=== PATIENT | female | born 1975 | race Two or more races ===

== ENCOUNTER → 2021-09-08 14:48 | Outpatient (BNVA) | payer OTHER, MEDICAID, SELFPAY | PROVIDERS: Visit Provider Psychiatry & Neurology Neurology | DX: G43.109 Migraine with aura, not intractable, without status migrainosus (principal); F41.9 Anxiety disorder, unspecified | CPT/HCPCS: 99212 ==

== ENCOUNTER → 2022-02-27 07:50 | Outpatient (BNVA) | payer OTHER, SELFPAY | PROVIDERS: Visit Provider Psychiatry & Neurology Neurology | DX: G43.119 Migraine with aura, intractable, without status migrainosus (principal) | CPT/HCPCS: 64615; 99211; J0585 ==

== ENCOUNTER → 2022-05-01 08:07 | Outpatient (BNVA) | payer OTHER, SELFPAY | PROVIDERS: Visit Provider Nurse Practitioner Family | DX: G43.109 Migraine with aura, not intractable, without status migrainosus (principal); G47.33 Obstructive sleep apnea (adult) (pediatric); Z99.89 Dependence on other enabling machines and devices | CPT/HCPCS: 99212 ==

== ENCOUNTER → 2022-05-28 11:28 | Outpatient (BNVA) | payer OTHER, SELFPAY | PROVIDERS: Visit Provider Psychiatry & Neurology Neurology | DX: G43.119 Migraine with aura, intractable, without status migrainosus (principal); G43.109 Migraine with aura, not intractable, without status migrainosus | CPT/HCPCS: 64615; 99211; J0585 ==

== ENCOUNTER → 2022-09-02 11:42 | Outpatient (BNVA) | payer OTHER, SELFPAY | PROVIDERS: Visit Provider Psychiatry & Neurology Neurology | DX: G43.119 Migraine with aura, intractable, without status migrainosus (principal); G43.709 Chronic migraine without aura, not intractable, without status migrainosus | CPT/HCPCS: 64615; 99211; J0585 ==

== ENCOUNTER → 2022-09-28 10:00 | Outpatient (BNVA) | payer OTHER, SELFPAY | PROVIDERS: Visit Provider Nurse Practitioner Family | DX: G43.709 Chronic migraine without aura, not intractable, without status migrainosus (principal); G43.119 Migraine with aura, intractable, without status migrainosus; G47.33 Obstructive sleep apnea (adult) (pediatric) | CPT/HCPCS: 99212 ==

== ENCOUNTER 2022-12-09 10:12 | Outpatient (AMB) | payer OTHER, SELFPAY ==
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
[2022-12-09 10:36] VITALS: BP 126/78; PULSE 66; O2SAT 98
== END 2022-12-09 10:55 | disposition home or self-care (01) ==
PROVIDERS: Visit Provider Psychiatry & Neurology Neurology
DX: G43.119 Migraine with aura, intractable, without status migrainosus (principal); G43.709 Chronic migraine without aura, not intractable, without status migrainosus
CPT/HCPCS: 64615

== ENCOUNTER → 2022-12-09 10:12 | Outpatient (BNVA) | payer OTHER, SELFPAY | PROVIDERS: Visit Provider Psychiatry & Neurology Neurology | DX: G43.709 Chronic migraine without aura, not intractable, without status migrainosus (principal) | CPT/HCPCS: 64615; 99211; J0585 ==

== ENCOUNTER 2023-01-28 10:52 | Outpatient (AMB) | payer OTHER, SELFPAY ==
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
[2023-01-28 10:55] VITALS: BP 116/78; BMI 47.1
== END 2023-01-28 11:35 | disposition home or self-care (01) ==
PROVIDERS: Visit Provider Nurse Practitioner Family
DX: G43.709 Chronic migraine without aura, not intractable, without status migrainosus (principal); G43.119 Migraine with aura, intractable, without status migrainosus; R11.2 Nausea with vomiting, unspecified; G47.33 Obstructive sleep apnea (adult) (pediatric)
CPT/HCPCS: 99214

== ENCOUNTER → 2023-01-28 10:52 | Outpatient (BNVA) | payer OTHER, SELFPAY | PROVIDERS: Visit Provider Nurse Practitioner Family | DX: G43.709 Chronic migraine without aura, not intractable, without status migrainosus (principal); G43.119 Migraine with aura, intractable, without status migrainosus; R11.2 Nausea with vomiting, unspecified; G47.33 Obstructive sleep apnea (adult) (pediatric); Z79.899 Other long term (current) drug therapy | CPT/HCPCS: 99212 ==

== ENCOUNTER 2023-03-22 10:36 | Outpatient (AMB) | payer OTHER, SELFPAY ==
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
[2023-03-22 11:07] VITALS: BP 108/78; PULSE 63; RESP 17; O2SAT 97; BMI 46.8
== END 2023-03-22 11:23 | disposition home or self-care (01) ==
PROVIDERS: Visit Provider Psychiatry & Neurology Neurology
DX: G43.709 Chronic migraine without aura, not intractable, without status migrainosus (principal)
CPT/HCPCS: 64615

== ENCOUNTER → 2023-03-22 10:36 | Outpatient (BNVA) | payer OTHER, SELFPAY | PROVIDERS: Visit Provider Psychiatry & Neurology Neurology | DX: G43.709 Chronic migraine without aura, not intractable, without status migrainosus (principal) | CPT/HCPCS: 64615; 99211; J0585 ==

== ENCOUNTER 2023-05-19 11:28 | Outpatient (AMB) | payer OTHER, SELFPAY ==
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
[2023-05-19 11:56] VITALS: BP 132/72; PULSE 71; RESP 17; O2SAT 95; BMI 45.8
== END 2023-05-19 12:24 | disposition home or self-care (01) ==
PROVIDERS: Visit Provider Nurse Practitioner Family
DX: G43.709 Chronic migraine without aura, not intractable, without status migrainosus (principal); G47.33 Obstructive sleep apnea (adult) (pediatric)
CPT/HCPCS: 99214

== ENCOUNTER → 2023-05-19 11:28 | Outpatient (BNVA) | payer OTHER, SELFPAY | PROVIDERS: Visit Provider Nurse Practitioner Family | DX: G43.709 Chronic migraine without aura, not intractable, without status migrainosus (principal); G47.33 Obstructive sleep apnea (adult) (pediatric) | CPT/HCPCS: 99212 ==

== ENCOUNTER 2023-06-25 14:25 | Outpatient (AMB) | payer OTHER, SELFPAY ==
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
[2023-06-25 14:30] VITALS: BP 112/68; PULSE 70; RESP 17; O2SAT 97; BMI 46.4
== END 2023-06-25 14:55 | disposition home or self-care (01) ==
LOC: HO.HSMS 14:26
PROVIDERS: Visit Provider Psychiatry & Neurology Neurology
DX: G43.119 Migraine with aura, intractable, without status migrainosus (principal)
CPT/HCPCS: 64615

== ENCOUNTER → 2023-06-25 14:25 | Outpatient (BNVA) | payer OTHER, SELFPAY | PROVIDERS: Visit Provider Psychiatry & Neurology Neurology | DX: G43.119 Migraine with aura, intractable, without status migrainosus (principal); G43.709 Chronic migraine without aura, not intractable, without status migrainosus | CPT/HCPCS: 64615; 99211; J0585 ==

== ENCOUNTER 2023-10-07 10:46 | Outpatient (AMB) | payer OTHER, SELFPAY ==
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
[2023-10-07 11:11] VITALS: BP 132/70; PULSE 67; O2SAT 98; BMI 45.7
== END 2023-10-07 11:32 | disposition home or self-care (01) ==
PROVIDERS: Visit Provider Psychiatry & Neurology Neurology
DX: G43.E09 Chronic migraine with aura, not intractable, without status migrainosus (principal)
CPT/HCPCS: 64615

== ENCOUNTER → 2023-10-07 10:46 | Outpatient (BNVA) | payer OTHER, SELFPAY | PROVIDERS: Visit Provider Psychiatry & Neurology Neurology | DX: G43.E09 Chronic migraine with aura, not intractable, without status migrainosus (principal) | CPT/HCPCS: 64615; 99211; J0585 ==

== ENCOUNTER 2024-01-17 15:10 | Outpatient (AMB) | payer OTHER, SELFPAY ==
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
[2024-01-17 15:16] VITALS: BP 128/70; PULSE 90; RESP 16; O2SAT 98; BMI 47.4
== END 2024-01-17 15:30 | disposition home or self-care (01) ==
PROVIDERS: Visit Provider Psychiatry & Neurology Neurology
DX: G43.719 Chronic migraine without aura, intractable, without status migrainosus (principal)
CPT/HCPCS: 64615

== ENCOUNTER → 2024-01-17 15:10 | Outpatient (BNVA) | payer OTHER, SELFPAY | PROVIDERS: Visit Provider Psychiatry & Neurology Neurology | DX: G43.E19 Chronic migraine with aura, intractable, without status migrainosus (principal) | CPT/HCPCS: 64615; 99211; J0585 ==

== ENCOUNTER 2024-03-31 12:57 | Outpatient (AMB) | payer OTHER, SELFPAY ==
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
[2024-03-31 12:59] VITALS: BMI 47.3
== END 2024-03-31 14:02 | disposition home or self-care (01) ==
PROVIDERS: Visit Provider Physician Assistant Medical
DX: G43.719 Chronic migraine without aura, intractable, without status migrainosus (principal); G47.33 Obstructive sleep apnea (adult) (pediatric); R20.0 Anesthesia of skin; R20.2 Paresthesia of skin
CPT/HCPCS: 99214

== ENCOUNTER → 2024-03-31 12:57 | Outpatient (BNVA) | payer OTHER, SELFPAY | PROVIDERS: Visit Provider Physician Assistant Medical | DX: G43.719 Chronic migraine without aura, intractable, without status migrainosus (principal); R20.0 Anesthesia of skin; R20.2 Paresthesia of skin; G47.33 Obstructive sleep apnea (adult) (pediatric); M47.816 Spondylosis without myelopathy or radiculopathy, lumbar region; M54.10 Radiculopathy, site unspecified; Z99.89 Dependence on other enabling machines and devices | CPT/HCPCS: 99212 ==

== ENCOUNTER 2024-05-01 08:14 | Outpatient (AMB) | payer OTHER, SELFPAY ==
[2024-05-01 08:17] VITALS: BP 126/88; PULSE 83; O2SAT 95; BMI 47.5
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
== END 2024-05-01 08:47 | disposition home or self-care (01) ==
PROVIDERS: Visit Provider Psychiatry & Neurology Neurology
DX: G43.E19 Chronic migraine with aura, intractable, without status migrainosus (principal)
CPT/HCPCS: 64615

== ENCOUNTER → 2024-05-01 08:14 | Outpatient (BNVA) | payer OTHER, SELFPAY | PROVIDERS: Visit Provider Psychiatry & Neurology Neurology | DX: G43.119 Migraine with aura, intractable, without status migrainosus (principal); G43.719 Chronic migraine without aura, intractable, without status migrainosus | CPT/HCPCS: 64615; 99211; J0585 ==

== ENCOUNTER 2024-05-02 06:14 | Outpatient (REF) | payer OTHER, SELFPAY ==
--- NOTE | 2024-05-02 06:16 | EMG_ITS ---
Bilateral tibial and peroneal motor studies were performed. Bilateral superficial peroneal and sural sensory studies were performed. Tibial H reflexes were obtained and paraspinal muscles were tested with a needle. IMPRESSION: 1. Left lower lumbar radiculopathy. 2. Mild underlying sensory axonal peripheral neuropathy. MD DIOMEDES Hernandez/BERNADETTE / [phone]
== END 2024-05-02 06:15 | disposition home or self-care (01) ==
LOC: HO.NEURO 06:14
PROVIDERS: Visit Provider Physician Assistant Medical
DX: R20.0 Anesthesia of skin (principal); R20.2 Paresthesia of skin
CPT/HCPCS: 95886; 95911

== ENCOUNTER 2024-05-03 08:41 | Outpatient (AMB) | payer OTHER, SELFPAY ==
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
[2024-05-03 08:45] VITALS: BMI 47.5
== END 2024-05-05 15:57 | disposition home or self-care (01) ==
PROVIDERS: Visit Provider Nurse Practitioner Family
DX: G43.719 Chronic migraine without aura, intractable, without status migrainosus (principal); M54.9 Dorsalgia, unspecified; R20.2 Paresthesia of skin; M54.10 Radiculopathy, site unspecified
CPT/HCPCS: 99214

== ENCOUNTER → 2024-05-03 08:41 | Outpatient (BNVA) | payer OTHER, SELFPAY | PROVIDERS: Visit Provider Nurse Practitioner Family ==

== ENCOUNTER 2024-05-11 08:26 | Outpatient (REF) | payer OTHER, SELFPAY ==
--- NOTE | ~2024-05-11 | XR_ITS ---
EXAMINATION: XR LUMBOSACRAL SPINE CLINICAL INFORMATION: M47.816 - Spondylosis without myelopathy or radiculopathy, lumbar region COMPARISON: Correlated to MRI lumbar spine dated January 04, 2017. TECHNIQUE: 6 views of the lumbar spine, inclusive of flexion and extension views, were obtained. FINDINGS: Endplate sclerosis and decreased intervertebral disc height at L4-5 and L5-S1 level. Rudimentary ribs at T12. Marginal osteophyte formation and endplate sclerosis at multiple levels of the lower thoracic and upper lumbar spine. No acute cortical disruption or malalignment. Facet joint hypertrophy at L4-5 and L5-S1. Vascular clips in the right upper quadrant abdomen and likely prior laparoscopic cholecystectomy. XR/XR lumbar spine 6V w bending IMPRESSION: Multilevel thoracolumbar spondylosis without acute fracture or listhesis. Electronically signed by: Bear Haynes MD 05/12/2024 10:08 AM [facility]
[2024-05-11 09:30] LABS: MANUAL DIFF FLAG NO
[2024-05-11 10:22] LABS: Basophils Percent Auto 0.6 % (0-2); Eosinophils Absolute Auto 0.1 X10*3/uL (0.0-0.4); Hematocrit 43.9 % (37.0-47.0); Imm Gran Abs Auto 0.02 X10*3/uL (0.00-0.03); Imm Gran Pct Auto 0.3 % (0.0-0.4); Lymphocytes Absolute Auto 1.7 X10*3/uL (1.2-4.9); Lymphocytes Percent Auto 24.2 % (20-40); Mean Corpuscular HGB Conc 31.9 g/dl (31.0-35.0); Mean Corpuscular Hemoglobin 29.4 pg (27.0-33.0); Mean Corpuscular Volume 92.2 fL (80.0-98.0); Mean Platelet Volume 10.9 fL (9.4-12.3); Monocytes Absolute Auto 0.5 X10*3/uL (0.1-1.2); Monocytes Percent Auto 7.5 % (2-11); Neutrophils Absolute Auto 4.6 x10*3/uL (2.0-8.3); Neutrophils Percent Auto 65.4 % (45-73); Platelet Count 233 X10*3/uL (160-400); Red Blood Count 4.76 X10*6/uL (4.20-5.50)
[2024-05-11 10:59] LABS: Estimated Average Glucose 97 mg/dL; Hemoglobin A1C 116.8234 umol/L; Total Hemoglobin (HGBA1C) 3709.8716 umol/L
[2024-05-11 11:10] LABS: Alanine Aminotransferase 17 U/L (0-31); Albumin Level 4.2 g/dL (3.5-5.0); Alkaline Phosphatase 82 U/L (39-117); Anion Gap 9 (12-20); Aspartate Amino Transferase 22 U/L (5-31); Bilirubin Total 0.4 mg/dL (0.0-1.0); Blood Urea Nitrogen 12 mg/dL (9-16); Calcium 9.4 mg/dL (8.4-10.2); Carbon Dioxide 25 mmol/L (22-29); Chloride 112 mmol/L (96-108); Estimated Glomerular Filt Rate 56; Glucose Random 99 mg/dL (60-115); Magnesium 2.1 mg/dL (1.6-2.6); Potassium 4.2 mmol/L (3.3-5.1); Sodium 142 mmol/L (135-145); Total Protein 7.8 g/dL (6.5-8.0)
[2024-05-11 11:28] LABS: Folate 11.1 ng/mL (> or = 4.0); TSH reflex Free T4 0.92 uIU/mL (0.32-4.0); Vitamin B12 415 pg/mL (200-900)
[2024-05-15 17:18] LABS: Vitamin D 25-OH, D2 <4 ng/mL; Vitamin D 25-OH, D3 10 ng/mL; Vitamin D 25-OH, Total 10 ng/mL (30-100)
[2024-05-20 16:28] LABS: Vitamin B6 <2.0 ng/mL (2.1-21.7)
== END 2024-05-11 08:27 | disposition home or self-care (01) ==
LOC: HO.LAB 08:26
PROVIDERS: Visit Provider Nurse Practitioner Family
DX: E03.9 Hypothyroidism, unspecified (principal); E66.9 Obesity, unspecified; F32.A Depression, unspecified; M54.9 Dorsalgia, unspecified; R20.2 Paresthesia of skin; R20.0 Anesthesia of skin; M54.10 Radiculopathy, site unspecified; M47.816 Spondylosis without myelopathy or radiculopathy, lumbar region
CPT/HCPCS: 36415; 72114; 80053; 82306; 82607; 82746; 83036; 83735; 84207; 84443; 85025

== ENCOUNTER → 2024-05-11 08:34 | Outpatient (BNV) | payer OTHER, SELFPAY | PROVIDERS: Visit Provider Radiology Diagnostic Radiology | DX: M47.815 Spondylosis without myelopathy or radiculopathy, thoracolumbar region (principal) | CPT/HCPCS: 72114 ==

== ENCOUNTER 2024-05-13 08:37 | Outpatient (REF) | payer OTHER, SELFPAY ==
--- NOTE | ~2024-05-13 | MR_ITS ---
EXAMINATION: MR LUMBAR SPINE WITHOUT IV CONTRAST History: R20.0 - Anesthesia of skin Technique: Sagittal T1, T2 and STIR, and axial T1 and T2 weighted images of the lumbar spine were obtained per departmental protocol. Comparison: Comparison is made with the prior examination dated 01/04/2017. Findings: The vertebral bodies maintain normal height, alignment, and marrow signal intensity. There is minimal degenerative disc disease with disc desiccation. At T12-L1,there is no evidence of disc herniation, central spinal stenosis, or neural foraminal narrowing. At L1-2, there is no evidence of disc herniation, central spinal stenosis, or neural foraminal narrowing. At L2-3, there is no evidence of disc herniation, central spinal stenosis, or neural foraminal narrowing. At L3-4, there is a mild disc bulge. There is facet and ligamentum flavum hypertrophy causing narrowing of the inferior recesses of the bilateral neural foramen. There is no significant central spinal stenosis. At L4-5, there is a mild disc bulge. There is facet osteoarthritis causing bilateral neural foraminal narrowing. There is no significant central spinal stenosis. At L5-S1, there is a mild disc bulge which is slightly asymmetric to the right. There is no central spinal or neural foraminal stenosis. The conus terminates at the L1 level and demonstrates normal signal intensity. The visualized paraspinal soft tissues are unremarkable. MR/MR lumbar spine wo con Impression: Mild degenerative changes of the lumbar spine as described. Electronically signed by: Abhinav Granger MD 05/15/2024 09:22 AM [facility]
== END 2024-05-13 08:38 | disposition home or self-care (01) ==
LOC: HO.MRI 08:37
PROVIDERS: Visit Provider Physician Assistant Medical
DX: R20.0 Anesthesia of skin (principal); R20.2 Paresthesia of skin; M47.816 Spondylosis without myelopathy or radiculopathy, lumbar region
CPT/HCPCS: 72148

== ENCOUNTER → 2024-05-13 08:41 | Outpatient (BNV) | payer OTHER, SELFPAY | PROVIDERS: Visit Provider Radiology Diagnostic Radiology | DX: R20.0 Anesthesia of skin (principal) | CPT/HCPCS: 72148 ==

== ENCOUNTER 2024-08-15 08:51 | Outpatient (AMB) | payer OTHER, SELFPAY ==
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
[2024-08-15 09:00] VITALS: PULSE 108; O2SAT 97; BMI 47.3
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
--- OUTSIDE RECORDS SUMMARY | 2024-08-15 09:17 | XMS_ITS | Encounter Summary ---
Author Organization [facility] Address [address] [place] [address] Care Team Providers Care Party Director Name Role Phone Unavailable Primary Care Provider Unavailabl e Encounter Details Date Type Department Care Team (Late st Contact Info) Description 08/08/2021 Dental Interim Note [facility] [address] [place] [phone] Sue Sales [address] [place] [address] Social History Tobacco Use Types Packs/Day Years Used Date Smoking Tobacco: Every Day Cigarettes 5 4 Smokeless Tobacco: Never Alcohol Use Standard Drinks/Week Comments No 0 (1 standard drink = 0.6 oz pur e alcohol) Social Connections Answer Date Recorded Social Connections and Isolation 0 12/19/2018 Financial Resource Strain Answer Date R ecorded Financial Resource Strain 0 2018 Stress Answer Date Recorded Stress 0 12/19/2018 Physical Activity Answer Date Recorded Physical Activity 0 12/19/2018 Food Insecurity Answer Date Recorded Food 0 12/19/2018 Transportation Needs Answer Date Record ed Transportation 0 12/19/2018 Housing Stability Answer Date Recorded Housing 0 12/19/2018 Safety and Environment Answer Date Hilton rded Safety 0 04/07/2017 Utilities Answer Date Recorded Utilities 0 12/19/2018 Employment Answer Date Recorded Employment 0 12/19/2018 Comments No Sex and Gender Information Value Date Recorded Sex Assigned at Female 04/07/2017 6:16 AM PST Legal Sex Female 6:49 AM PDT Gender Identity Female 04/07/2017 6:16 AM PST Sexual Orientation Straight 04/07/2017 6: 16 AM PST documented as of this encounter Plan of Treatment Not on file documented as of this encounter Visit Diagnoses Not on filedocumented in this encounter Additional Health Concerns Assessment Noted Time PHQ-9 Depression Total Score: 7 04/07/20 17 9:16 AM PST documented as of this encounter
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
--- OUTSIDE RECORDS SUMMARY | 2024-08-15 09:17 | XMS_ITS | Clinical Summary ---
Author Organization [facility] Address [address] [place] [address] Care Team Providers Care Web Machine Tender Name Role Phone Tiffanie Thompson MD Primary Care Provider Social History Tobacco Use Types Packs/Day Years Used Date Smoking Tobacco: Never Assessed Sex and Gender Information Value Date Recorded Sex Assigned at Not on file Gender Identity Not on file Sexual Orientation Not on file Plan of Treatment Health Maintenance Due Date Last Done Comments Hepatitis B Vaccines (1 of 3 - 3-dose series) 1973 Hepatitis C Screening 1973 COVID-19 Vaccine (#1) 01/21/1974 Depression Screening 1985 Preventative Health Evaluation 07/22/1991 DTap / Tdap / Td (1 - Tdap) 1992 Cervical Cancer Screening (P ap Smear) 1994 Colon Cancer Screening (Colonoscopy) 2018 Breast Cancer Screening (Mammogram) 07/22/2023 Shingrix-Zoster Vaccine (1 of 2) 07/22/2023 Influenza Vaccine (#1) 2023 Pneumococcal Vaccine Aged Out No long er eligible based on patient's age to complete this topic RSV Ped < 20 months Aged Out No longe r eligible based on patient's age to complete this topic Care Teams Web Machine Tender Relationship Specialty Start Date End Date Tiffanie Thompson MD [address] [facility] Dept Of Anesthesia [place] [id number] PCP - General Anesthesiology 02/23/19
== END 2024-08-15 09:21 | disposition home or self-care (01) ==
LOC: HO.HSMS 08:51
PROVIDERS: Visit Provider Psychiatry & Neurology Neurology
DX: G43.719 Chronic migraine without aura, intractable, without status migrainosus (principal)
CPT/HCPCS: 64615

== ENCOUNTER → 2024-08-15 08:51 | Outpatient (BNVA) | payer OTHER, SELFPAY | PROVIDERS: Visit Provider Psychiatry & Neurology Neurology | DX: G43.119 Migraine with aura, intractable, without status migrainosus (principal); G43.719 Chronic migraine without aura, intractable, without status migrainosus | CPT/HCPCS: 64615; 99211; J0585 ==

== ENCOUNTER 2024-11-14 09:26 | Outpatient (AMB) | payer OTHER, SELFPAY ==
[2024-11-14 09:36] VITALS: BP 100/64; PULSE 86; O2SAT 98; BMI 44.8
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
--- OUTSIDE RECORDS SUMMARY | 2024-11-14 10:00 | XMS_ITS | Encounter Summary ---
Author Organization [facility] Address [address] [place] [address] Care Team Providers Care Oscillograph Technician Name Role Phone Unavailable Primary Care Provider Unavailabl e Encounter Details Date Type Department Care Team (Late st Contact Info) Description 08/08/2021 Dental Interim Note [facility] [address] [place] [address] [phone] Sue Sales [address] [place] [address] Social History Tobacco Use Types Packs/Day Years [...]
--- OUTSIDE RECORDS SUMMARY | 2024-11-14 10:00 | XMS_ITS | Clinical Summary ---
Author Organization [facility] Address [address] [place] [address] Care Team Providers Care Sweatband Shaper Name Role Phone Tiffanie Thompson MD Primary Care Provider [phone] Social History Tobacco Use Types Packs/Day Years [...] (1 of 2) 07/22/2023 Influenza Vaccine (#1) 2024 Pneumococcal Vaccine Aged Out No long er eligible based on patient's age to complete this topic RSV Ped < 20 months Aged Out No longe r eligible based on patient's age to complete this topic Care Teams Sweatband Shaper Relationship Specialty Start Date End Date Tiffanie Thompson MD [address] [facility] Dept Of Anesthesia [place] [id number] PCP - General Anesthesiology 02/23/19
--- OUTSIDE RECORDS SUMMARY | 2024-11-14 10:00 | XMS_ITS | Clinical Summary ---
Author Organization [facility] Address [address] [place] [address] Care Team Providers Care Therapy Administrative Assistant Name Role Phone Tiffanie Thompson MD Primary Care Provider [phone] Surgical History Surgery Date Site/Laterality Comments CHOLECYSTECTOMY [...] Seropositive rheumatoid arth ritis of multiple sites ([facility] V24, [facility] V28) 01/12/2018 DX:Seropositive rheumatoid a rthritis of multiple sites ([facility]) Bilateral calcaneal spurs 11/18/2017 DX:Joselito ateral calcaneal spurs; COMMENT: x ray 10-21-17 Morbid obesity with BMI of 4 5.0-49.9, adult ([facility] V24, [facility] V28) 11/03/2017 DX:Morbid obesity wit h BMI of 45.0-49.9, adult ([facility]) Family History Medical History Relation Name Comments [...] Vaccine ( - 2023-2 5 season) 2023 Depression Screening 04/26/2024 Influenza Vaccine (#1) 2024 HIB Vaccines Aged Out No longer [...] age to complete this topic Care Teams Therapy Administrative Assistant Relationship Specialty Start Date End Date Tiffanie Thompson MD [address] [place] [address] PCP - General Anesthesiology 02/23/19
== END 2024-11-14 10:08 | disposition home or self-care (01) ==
LOC: HO.HSMS 09:26
PROVIDERS: Visit Provider Psychiatry & Neurology Neurology
DX: G43.719 Chronic migraine without aura, intractable, without status migrainosus (principal)
CPT/HCPCS: 64615

== ENCOUNTER → 2024-11-14 09:26 | Outpatient (BNVA) | payer OTHER, SELFPAY | PROVIDERS: Visit Provider Psychiatry & Neurology Neurology | DX: G43.119 Migraine with aura, intractable, without status migrainosus (principal); E66.9 Obesity, unspecified; F32.A Depression, unspecified; M54.9 Dorsalgia, unspecified; E03.9 Hypothyroidism, unspecified; F41.9 Anxiety disorder, unspecified; M79.7 Fibromyalgia; M47.26 Other spondylosis with radiculopathy, lumbar region; Z87.891 Personal history of nicotine dependence | CPT/HCPCS: 64615; 99211; J0585 ==

== ENCOUNTER 2025-02-13 08:15 | Outpatient (AMB) | payer OTHER, SELFPAY ==
[2025-02-13 08:20] VITALS: BP 122/80; PULSE 79; O2SAT 97; BMI 42.2
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
--- OUTSIDE RECORDS SUMMARY | 2025-02-13 08:22 | XMS_ITS | Clinical Summary ---
Author Organization [facility] Address [address] [place] [address] Care Team Providers Care Level Vial Inspector And Tester Name Role Phone Unavailable Primary Care Provider [...] cane. For life. Dx. R26.81 1 Each 05/21/19 18 Active blood-glucose meter (FREESTYLE LITE METER) monitoring kit as needed for blood glucose monitoring 1 Strip as needed for high blood sugar Check sugars twice daily. Dx.R73.03 1 Each 05/29/19 18 Active PARoxetine HCl (PAXIL) 30 mg tablet 08/05/19 18 Active gabapentin (NEURONTIN) 300 mg capsuleIndications :Peripheral polyneuropathy Take 1 Cap by mouth nightly at bedtime 30 Cap 3 08/10/19 18 Active phentermine (ADIPEX-P) 37.5 mg tabletIndications: Hypothyroidism, unspecified type Take 1 Tab by mouth every morning before breakfast 30 Tab 12/31/19 18 Active orphenadrine citrate (NORFLEX ER) 100 mg 12 hr tabletIndications: Neck muscle spasm TAKE 1 TABLET BY MOUTH TWICE A DAY NEEDED FOR MUSCLE SPASMS 60 Tab 01/11/20 18 Active clonazePAM (KLONOPIN) 1 mg tablet Per psych 0 02/01/20 18 Active folic acid (FOLVITE) 1 mg tablet Take 1,000 mcg by mouth once daily 12 01/31/20 18 Active zolpidem (AMBIEN) 10 mg tablet Per psych 0 02/01/20 18 Active methotrexate sodium 2.5 mg tablet Per rheum 3 02/07/20 18 Active hydrocortisone 2.5 % lotionIndications: Psoriasis Apply topically 2 (two) times daily 59 mL 02/09/20 18 Active SYNTHROID 175 mcg tabletIndications: Hypothyroidism, unspecified type TAKE 1 TABLET BY MOUTH EVERY DAY 30 Tab 2 08/23/19 19 Active clotrimazole-betam ethasone (LOTRISONE) 1-0.05 % creamIndications:H /O psoriasis APPLY TO AFFECTED AREA TWICE A DAY 15 g 09/21/19 19 Active blood sugar diagnostic (FREESTYLE LITE STRIPS) strips 2 (two) times daily Use as directed 2 times daily. Dx.R73.03 180 Each 2 07/27/19 20 Active sodium fluoride-pot nitrate 1.1-5 % psteIndications:Ca sarath Place 1 Pea-sized in mouth 2 (two) times daily Apply a thin ribbon of paste to a toothbrush. Frederic thoroughly for two minutes, in place of your regular toothpaste. Expectorate. For best results, do not eat, drink, or rinse for 30 minutes. 100 mL 5 09/19/19 23 Active DENTAGEL 1.1 % gelIndications:At high risk for dental caries USE DIRECTED ONCE DAILY 56 g 05/10/19 25 Active methylPREDNISolone (MEDROL DOSPAK) 4 mg tablet packIndications:Ot her acute postoperative pain Follow instructions in the pack.. 21 Each 01/24/20 25 Active azithromycin (ZITHROMAX Z-HUY) 250 mg tabletIndications: Tooth infection Take two (2) tablets by mouth on the first day, then take one (1) tablet every day until finished.. 6 Tablet 01/24/20 25 Active Active Problems Problem Noted Date Diagnosed Date Rheumatoid arthritis, seropositive 12/20/2017 Overview (01/25/2018): Positive RF factor and CCP. Will start 15mg weekly MTX with daily folic acid. DDD (degenerative disc disease), lumbar 11/19/19 18 Overview (12/29/2017): Saw Physiatry 8-24-18 - will try L4-5 interlaminar epidura. MRI [...] 06/21/2017 Overview (06/21/2017): Recent a1c was 5.1 Encounters Date Type Department Care Team Description 02/07/2025 3:00 PM EDT Office Visit [facility] [address] [place] [phone] Jan Stanley DDS 01/23/2025 1:20 PM EDT Office Visit [facility] [address] [place] [phone] Camilo Muñoz RHD from Last 3 Months Social History Tobacco Use Types Packs/Day Years [...] Sign Reading Time Taken Comments Blood Pressure 111/75 01/23/2025 2:17 PM EDT Pulse 84 01/23/2025 2:17 PM EDT Temperature 36.7 C (98 F) 02/08/2018 10:01 AM EDT Respiratory Rate 22 02/08/2018 10:01 AM EDT Oxygen Saturation 96% 08/09/2017 4:09 PM EDT Inhaled Oxygen Concentration - - Weight 104.8 kg (231 lb) 02/08/2018 10:01 AM EDT Height 149.9 cm (4' 11 ) 12/13/2017 11:37 AM EDT Body Mass Index 46.66 12/13/2017 11:37 AM EDT Plan of Treatment Upcoming Encounters Date Type Department Care Team (Late st Contact Info) Description 02/28/2025 2:00 PM EST Office Visit [facility] [address] [place] [phone] Camilo Muñoz, D [address] [place] [address] 03/07/2025 1:00 PM EST Office Visit [facility] [address] [place] [phone] Miller Beard, S [address] [place] [address] Health Maintenance Due Date Last Done Comments Anxiety Screening 1973 HPV Screening (self-collect) 1973 HPV Screening 1973 Hepatitis C Screening 1973 Pap + HPV 1973 [id number] (#1) 1978 HIV Screening 1988 Imm-Hepatitis B (1 of 3 - 19 + 3-dose series) 1992 Imm-Pneumococcal 50+ (1 of 2 - PCV) 1992 Imm-Zoster, Recombinant (1 of 2) 1992 Depression Monitoring 07/06/2017 04/07/2017 Tobacco Cessation Counseling (#1) 04/07/2018 017 Breast Cancer Screening (Mammogram) 05/12/2018 05/12/2017 CT Colonography 2018 Colonoscopy 2018 Colorectal Cancer Screening 2018 FIT/gFOBT 2018 Fecal DNA 2018 Flexible Sigmoidoscopy 2018 TSH Monitoring 09/14/2018 09/14/2017, 07/25, 04/07/2017 Annual Wellness (Adult): Indicated (All Coverage) 02/08/2019 02/08/2018, 04/07/2017 Diabetes Screening 09/14/2020 09/14/2017, 0 08/09/2017, 04/07/2017, Additional history exists Cervical Cancer Screening 02/15/2021 Pap Smear 02/15/2021 02/15/2018, 01/24, 03/06/2015 Lipid Screening 04/07/2022 04/07/2017 Lung Cancer Screening 07/22/2023 Dental Perio Charting 09/21/2023 09/18/2022 Alcohol and Drug Screen 04/26/2024 06/07/2017, 04/07 Dental BW 05/15/2024 05/13/2023, 09/18/2022 Dental Examination 05/15/2024 05/13/2023, 09/18/2022 Dental Prophy 05/15/2024 05/13/2023, 09/18/2022 Hypertension Screening (#1) 01/23/2026 Dental FMX/Pano 09/21/2027 09/18/2022 Imm-DTaP/Tdap/Td (2 - Td or Tdap) 12/07/2028 019 Cervical Ablation/Cold-Knife Conization Discontinued Cervical Cryotherapy Discontinued Colposcopy Discontinued Excision/Leep Discontinued HPV Genotyping Discontinued Imm-Influenza Discontinued Vaginal Pap Discontinued Vulvoscopy Discontinued Procedures Procedure Name Priority Date/Time Associated Diagnosis Comments 14 EXTRACTION ERUPTED TOOTH OR EXPOSED ROOT Routine 02/07/2025 3:00 PM EDT Caries of enamel (incipient) CASE PRESENTATION SUBS DTL & EXTENSIVE TX PLN Routine 02/07/2025 3:00 PM EDT Caries of enamel (incipient) 13 EXTRACTION ERUPTED TOOTH OR EXPOSED ROOT Routine 02/07/2025 3:00 PM EDT Caries of enamel (incipient) CASE PRESENTATION SUBS DTL & EXTENSIVE TX PLN Routine 01/23/2025 1:20 PM EDT Tooth infection INTRAORAL - PERIAPICAL FIRST RADIOGRAPHIC IMAGE Routine 01/23/2025 1:20 PM EDT Tooth infection OFFICE VISIT OBSERVATION NO OTHER SRVC PERFORMED Routine 01/23/2025 1:20 PM EDT Tooth infection BITEWINGS - THREE RADIOGRAPHIC IMAGES Routine 05/13/2023 1:40 PM EST Caries Defective dental judaism Caries of enamel (incipient) PROPHYLAXIS - ADULT Routine 05/13/2023 1 :40 PM EST Caries Defective dental judaism Caries of enamel (incipient) PERIODIC ORAL EVALUATION ESTABLISHED PATIENT Routine 05/13/2023 1:40 PM EST Caries Defective dental judaism Caries of enamel (incipient) COMP PERIODONTAL EVALUATION [...] / Unknown 02/08/2018 10:22 AM EDT Impressions [facility] - 02/15/2018 4:02 PM EDT NEGATIVE for Intraepithelial Lesion or Malignancy. Human Papilloma Virus, High-Risk- NEGATIVE. [facility] - PATHOLOGY AND CYTOLOGY AMB ULATORY Final Result Performing Organization Address [facility]/ZIP Co de Phone Number [facility] [address] [place] [address], * (ABNORMAL) THYROID CASCADE PROFILE (09/14/2017 2:29 PM EDT) TSH CASCADE 7.30(H) 0.40 - 4.00 uIU/ml [facility] Blood specimen (specimen) Blood / Unknown 09/14/2017 2:29 PM EDT 09/14/2017 2:35 PM EDT Narrative [facility] - 09/14/2017 4:32 PM EDT [facility] [email or web address] [address] [place] [address] PT ID [id number] ORD# [id number] [facility] - BLOOD DRAW Final Result Performing Organization Address [facility] Co de Phone Number [facility] [address] [place] [address], * COMPRE METAB PANEL (CMP) (09/14/2017 2:29 PM EDT) GLUCOSE 85 70 - 100 mg/dL [facility] Comment:Reference range appl icable to fasting specimens only BUN 12 5 - 25 mg/dL [facility] CREAT 0.76 0.5 - 1.1 mg/dL [facility] GLOMERULAR FILTRATION RATE > 60 [facility] Comment: If patient is -[place], multiply result by 1.21 Chronic Kidney Disease: < 60 ml/min/1.73 square meters Kidney Failure: < 15 ml/min/1.73 square meters SODIUM 137 133 - 145 mmol/L [facility] POTASSIUM 4.3 3.5 - 5.5 mmol/L [facility] CHLORIDE 104 96 - 110 mmol/L [facility] CO2 26 21 - 32 mmol/L [facility] ANION GAP 7 3 - 11 [facility] CALCIUM 9.0 8.5 - 10.5 mg/dL [facility] TOTAL PROTEIN 7.5 6.0 - 8.0 G/dL [facility] ALBUMIN 3.8 3.2 - 5.0 G/dL [facility] BILI, TOTAL 0.2 0.0 - 1.4 mg/dL [facility] SGOT 21 10 - 42 U/L [facility] SGPT 24 10 - 60 U/L [facility] ALK PHOS 112 42 - 121 U/L [facility] Blood specimen (specimen) Blood / Unknown 09/14/2017 2:29 PM EDT 09/14/2017 2:35 PM EDT Narrative [facility] - 09/14/2017 4:25 PM EDT [facility] [address] [place] [address] PT ID [id number] ORD# [id number] [facility] - BLOOD DRAW Final Result [facility] [address] [place] [address], * LIPID PANEL (04/07/2017 10:06 AM EST) CHOLESTEROL 177 0 - 200 mg/dL [facility] TRIGLYCERIDES 103 0 - 150 mg/dL [facility] HDL CHOLESTEROL 66 >40 mg/dL [facility] LDL CALCULATED 91 0 - 100 mg/dL [facility] TC-HDLC RATIO 2.7 0 - 4.4 mg/dL [facility] Blood specimen (specimen) Blood / Unknown 04/07/2017 10:06 AM EST 04/07/2017 10:33 AM EST Narrative [facility] 04/07/2017 12:49 PM EST [facility] [address] [place] [address] PT ID [id number] ORD# [id number] [facility] - BLOOD DRAW Edited Result - Final [facility] [address] [place] [address], from Last 3 Months or Most Recently Relevant to Health Maintenance Insurance [employer] [facility] [place] [employer] [facility]
--- OUTSIDE RECORDS SUMMARY | 2025-02-13 08:22 | XMS_ITS | Encounter Summary ---
Author Organization [facility] Address [address] [place] [address] Care Team Providers Care Dimension Warehouse Supervisor Name Role Phone Unavailable Primary Care Provider Unavailabl e Encounter Details Date Type Department Care Team ([facility] Contact Info) Description 08/08/2021 Dental Interim Note Dental [address] [place] [phone] Sue Sales [address] [place] [address] Social History Tobacco Use Types Packs/Day Years [...] as of this encounter Plan of Treatment Upcoming Encounters Date Type Department Care Team (Late st Contact Info) Description 02/28/2025 2:00 PM EST Office Visit [facility] [address] [place] [phone] Camilo Muñoz RHD [address] [place] [address] 03/07/2025 1:00 PM EST Office Visit [facility] [address] [place] [phone] Miller Beard, [place] [address] [place] [address] documented as of this encounter Visit Diagnoses Not on filedocumented in this encounter Additional Health Concerns Assessment Noted Time PHQ-9 Depression Total Score: 7 04/07/20 17 9:16 AM PST documented as of this encounter
--- OUTSIDE RECORDS SUMMARY | 2025-02-13 08:22 | XMS_ITS | Clinical Summary ---
Author Organization [facility] Address [address] [place] [address] Care Team Providers Care Hedge Fund Principal Name Role Phone Tiffanie Thompson MD Primary Care Provider [phone] Social History Tobacco Use Types Packs/Day Years [...] age to complete this topic Care Teams Hedge Fund Principal Relationship Specialty Start Date End Date Tiffanie Thompson MD [address] [facility] Dept Of Anesthesia [place] [phone] PCP - General Anesthesiology 02/23/19
== END 2025-02-13 09:19 | disposition home or self-care (01) ==
LOC: HO.HSMS 08:16
PROVIDERS: Visit Provider Psychiatry & Neurology Neurology
DX: G43.719 Chronic migraine without aura, intractable, without status migrainosus (principal); G43.119 Migraine with aura, intractable, without status migrainosus
CPT/HCPCS: 64615

== ENCOUNTER → 2025-02-13 08:15 | Outpatient (BNVA) | payer OTHER, SELFPAY | PROVIDERS: Visit Provider Psychiatry & Neurology Neurology | DX: G43.119 Migraine with aura, intractable, without status migrainosus (principal); G43.719 Chronic migraine without aura, intractable, without status migrainosus | CPT/HCPCS: 64615; 99211; J0585 ==